=== PATIENT | male | born 1995 | race Caucasian/White ===

== ENCOUNTER 2020-03-28 00:45 | Emergency (ER) | payer SELFPAY ==
[~2020-03-28] VITALS: Ht 175.2 cm; Wt 68.0 kg
[2020-03-28] MEDS ORDERED: L.E.T. SOLUTION 3 ML SYR TOP ONE (01:15)
[2020-03-28] MEDS ORDERED: TETANUS,DIPTH,PERTUSS P/F (BOOSTRIX) 0.5 ML VIAL IM ONE (01:15)
--- NOTE | 2020-03-28 01:15 | NUR ---
Patient refuses IV fluid. Patient is being generally uncooperative.
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
[2020-03-28 01:26] LABS: HEMOGLOBIN 17.3 G/DL (13.3-17.7); MEAN PLATELET VOLUME 10.1 FL (7.4-10.4); WHITE BLOOD COUNT 6.4 10^3/uL (4.3-11.0)
[2020-03-28] MEDS: NS IV 1000 ML 1,000 ML IV SCH ×2 (01:38→02:04)
[2020-03-28] MEDS ORDERED: HALOPERIDOL 5 MG/ML (HALDOL) VIAL ONE (01:40)
[2020-03-28 01:46] LABS: BUN/CREATININE RATIO 9; CALCIUM 9.3 MG/DL (8.5-10.1); CARBON DIOXIDE 22 MMOL/L (21-32); CHLORIDE 107 MMOL/L (98-107); CREATININE SERUM 0.94 MG/DL (0.60-1.30); GFR ESTIMATED > 60; GLUCOSE 101 MG/DL (70-105); POTASSIUM 3.7 MMOL/L (3.6-5.0); SODIUM 144 MMOL/L (135-145)
[2020-03-28 02:00] LABS: ALANINE AMINOTRANSFERASE 11 U/L (0-55); ALBUMIN 5.1 GM/DL (3.2-4.5); ALKALINE PHOSPHATASE 58 U/L (40-136); BILIRUBIN,TOTAL 0.3 MG/DL (0.1-1.0); TOTAL PROTEIN 7.9 GM/DL (6.4-8.2)
[2020-03-28 02:15] LABS: BACTERIA,URINE NEGATIVE /HPF; BILIRUBIN,URINE NEGATIVE (NEGATIVE); CLARITY,URINE CLEAR; COLOR,URINE CLEAR; GLUCOSE, URINE (UA) NEGATIVE (NEGATIVE); KETONES,URINE NEGATIVE (NEGATIVE); LEUKOCYTE ESTERASE ,URINE NEGATIVE (NEGATIVE); NITRITE,URINE NEGATIVE (NEGATIVE); PH,URINE 6.5 (5-9); PROTEIN,URINE NEGATIVE (NEGATIVE); RBC,URINE 0-2 /HPF
[2020-03-28 02:15] LABS: BILIRUBIN,DIRECT 0.2 MG/DL (0.0-0.3); BILIRUBIN,INDIRECT 0.1 MG/DL
[2020-03-28] MEDS ORDERED: HALOPERIDOL 5 MG/ML (HALDOL) VIAL IM ONE (02:15)
[2020-03-28 02:16] LABS: SQUAMOUS EPITHELIAL CELL,UR 0-2 /HPF
[2020-03-28 03:21] VITALS: BP 104/82
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
== END 2020-03-28 03:21 ==
LOC: ER FS 00:50
DX: S01.81XA Laceration without foreign body of other part of head, initial encounter (principal); S05.12XA Contusion of eyeball and orbital tissues, left eye, initial encounter; F10.129 Alcohol abuse with intoxication, unspecified; F14.90 Cocaine use, unspecified, uncomplicated; T14.8XXA Other injury of unspecified body region, initial encounter; Z23 Encounter for immunization; Y31.XXXA Falling, lying or running before or into moving object, undetermined intent, initial encounter
CPT/HCPCS: 36415; 70450; 70486; 71045; 72125; 80048; 80076; 81000; 85027; 93005; 93041; 99284; G0480; 80320; 90715